=== PATIENT | female | born 1935 | race Caucasian/White ===

== ENCOUNTER 2017-11-12 07:51 | Inpatient (IN) | payer MEDICARE ==
[~2017-11-12] VITALS: Ht 160 cm; Wt 67.5 kg
[2017-11-12] VITALS (15 sets, daily range): BP systolic 113–146; BP diastolic 70–100
[2017-11-12] MEDS ORDERED: NITROGLYCERIN 0.4 MG SL TAB SL ONE (08:00)
[2017-11-12] MEDS ORDERED: NITROGLYCERIN 50 MG/D5% WATER 1 BOT ONE (08:01)
[2017-11-12] MEDS ORDERED: HEPARIN 25000 UNITS/250 ML D5W 250 ML IV ONE (08:16)
[2017-11-12 08:21] LABS: POTASSIUM 4.3 mmol/L (3.5-5.1)
[2017-11-12] MEDS ORDERED: BIVALIRUDIN 250 MG/VIAL IV ONE (08:25)
[2017-11-12] MEDS ORDERED: NITROGLYCERIN 5 MG/ML 10 ML VIAL IV ONE (08:25)
[2017-11-12] MEDS ORDERED: ISOVUE-370 50ML VIAL IV ONE (08:26)
[2017-11-12] MEDS ORDERED: LIDOCAINE HCL 2% 20ML ONE ×2 (08:26→09:59)
[2017-11-12] MEDS ORDERED: IOPAMIDOL-370 100 ML VIAL IV ONE ×2 (08:26→09:37)
[2017-11-12] MEDS ORDERED: HEPARIN SODIUM 5000UNIT/ML 1ML VIAL ONE (08:28)
[2017-11-12 08:29] LABS: BASOPHILS % (AUTO) 1.3 % (0.0-5.0); EOSINOPHILS % (AUTO) 2.6 % (0.0-8.0); HEMATOCRIT 45.9 % (36-48); LYMPHOCYTES % (AUTO) 33.6 % (21.0-51.0); MEAN CORPUSCULAR HEMOGLOBIN 32.2 pg (27.0-33.0); MEAN CORPUSCULAR HGB CONC 33.8 g/dL (32.0-36.0); MEAN CORPUSCULAR VOLUME 95.4 fL (79-99); MONOCYTES % (AUTO) 8.8 % (3.0-13.0); NEUTROPHILS % (AUTO) 53.7 % (40.0-77.0); PLATELET COUNT (AUTO) 238 K/uL (130-400); RED BLOOD CELL COUNT(AUTO) 4.81 MIL/uL (4.00-5.50); RED CELL DISTRIBUTION WIDTH 14.5 % (11.0-15.5); WHITE BLOOD COUNT (AUTO) 7.6 K/uL (4.8-10.8)
[2017-11-12 08:36] LABS: ALBUMIN 3.7 g/dL (3.5-5.0); BILIRUBIN,TOTAL 0.4 mg/dL (0.2-1.0); CREATINE KINASE MB 2.7 ng/mL (0.5-3.6); TOTAL PROTEIN, SERUM 8.4 g/dL (6.0-8.3)
[2017-11-12 08:50] LABS: INR 0.96 (0.85-1.15); PARTIAL THROMBOPLASTIN TIME 27.1 SEC (26.3-35.5); PROTHROMBIN TIME 10.1 SEC (9.6-11.6)
[2017-11-12] MEDS ORDERED: LABETALOL HCL 5 MG/ML 20ML VIAL IV ONE (09:00)
[2017-11-12] MEDS ORDERED: ATROPINE SULFATE 0.1 MG/ML 10 ML SYG IVP ONE (09:05)
[2017-11-12] MEDS ORDERED: HEPARIN SODIUM 1000UNIT/ML 10ML VIAL ONE (09:22)
[2017-11-12] MEDS ORDERED: MORPHINE SULFATE 4 MG/1ML SYG ONE (09:25)
[2017-11-12] MEDS ORDERED: ADENOSINE 3 MG/ML 2ML VIAL IV ONE (09:32)
[2017-11-12] MEDS ORDERED: LISINOPRIL 10 MG TABLET PO SCH (10:15)
[2017-11-12] MEDS ORDERED: SODIUM CHLORIDE 0.9% 1000ML 1,000 ML IV SCH (10:15)
[2017-11-12] MEDS ORDERED: TICAGRELOR 90 MG TABLET ONE (10:27)
[2017-11-12] MEDS ORDERED: ENALAPRIL MALEATE 5 MG TAB PO SCH (11:45)
[2017-11-12 11:56] LABS: HEMATOCRIT 39.5 % (36-48); MEAN CORPUSCULAR HEMOGLOBIN 32.6 pg (27.0-33.0); MEAN CORPUSCULAR HGB CONC 34.3 g/dL (32.0-36.0); MEAN CORPUSCULAR VOLUME 94.9 fL (79-99); PLATELET COUNT (AUTO) 211 K/uL (130-400); RED BLOOD CELL COUNT(AUTO) 4.16 MIL/uL (4.00-5.50); RED CELL DISTRIBUTION WIDTH 14.3 % (11.0-15.5); WHITE BLOOD COUNT (AUTO) 9.8 K/uL (4.8-10.8)
[2017-11-12] MEDS ORDERED: CALC500T7 PO (11:58)
[2017-11-12] MEDS ORDERED: IBUP1TAB71 PO (11:58)
[2017-11-12] MEDS: METOPROLOL TARTRATE 25 MG TAB PO SCH ×2 (12:21→20:36)
[2017-11-12] MEDS ORDERED: SODIUM CHLORIDE 0.9% 500ML 500 ML IV ONE (12:29)
[2017-11-12 12:44] LABS: ALBUMIN 3.1 g/dL (3.5-5.0); BILIRUBIN,TOTAL 0.5 mg/dL (0.2-1.0); CREATINE KINASE MB 32.6 ng/mL (0.5-3.6); MAGNESIUM 1.7 mg/dL (1.80-2.40); POTASSIUM 4.7 mmol/L (3.5-5.1); TOTAL PROTEIN, SERUM 6.8 g/dL (6.0-8.3)
[2017-11-12 12:50] LABS: TROPONIN I 16.04 ng/mL (0.00-0.06)
[2017-11-12] MEDS: HEPARIN SODIUM 5000 UNIT/ML 25,000 UNIT in DEXTROSE 5%-WATER 500 ML SQ NR (12:55)
[2017-11-12 18:02] LABS: CREATINE KINASE MB 51.3 ng/mL (0.5-3.6)
[2017-11-12 18:04] LABS: TROPONIN I 23.76 ng/mL (0.00-0.06)
[2017-11-12] MEDS: ONDANSETRON HCL 4 MG/2 ML VIAL IVP PRN (18:33)
[2017-11-12] MEDS: TICAGRELOR 90 MG TABLET PO SCH (20:35)
[2017-11-12] MEDS: DIAZEPAM 5 MG TABLET PO PRN (20:36)
[2017-11-12] MEDS: FUROSEMIDE 20 MG TABLET PO SCH (23:36)
[2017-11-13] VITALS (31 sets, daily range): BP systolic 100–150; BP diastolic 57–104
[2017-11-13] MEDS: NITROGLYCERIN 50 MG/D5% WATER 1 BOT IV PRN ×2 (01:57→19:55)
[2017-11-13 03:47] LABS: HEMATOCRIT 36.1 % (36-48); MEAN CORPUSCULAR HEMOGLOBIN 32.8 pg (27.0-33.0); MEAN CORPUSCULAR HGB CONC 34.6 g/dL (32.0-36.0); MEAN CORPUSCULAR VOLUME 94.8 fL (79-99); PLATELET COUNT (AUTO) 188 K/uL (130-400); RED BLOOD CELL COUNT(AUTO) 3.81 MIL/uL (4.00-5.50); RED CELL DISTRIBUTION WIDTH 14.8 % (11.0-15.5); WHITE BLOOD COUNT (AUTO) 8.7 K/uL (4.8-10.8)
[2017-11-13 04:38] LABS: CREATINE KINASE MB 55.3 ng/mL (0.5-3.6); POTASSIUM 4.9 mmol/L (3.5-5.1)
[2017-11-13 04:43] LABS: TROPONIN I 17.97 ng/mL (0.00-0.06)
[2017-11-13] MEDS: METOPROLOL TARTRATE 25 MG TAB PO SCH ×2 (08:11→19:54)
[2017-11-13] MEDS: ASPIRIN 81MG TAB.CHEW PO SCH (08:11)
[2017-11-13] MEDS: PANTOPRAZOLE SODIUM 40 MG TABLET.DR PO SCH (08:13)
[2017-11-13] MEDS: ENALAPRIL MALEATE 5 MG TAB PO SCH (08:13)
[2017-11-13] MEDS: ONDANSETRON HCL 4 MG/2 ML VIAL IVP PRN (08:13)
[2017-11-13] MEDS: MORPHINE SULFATE 2 MG/ML 1ML SYG IV PRN (08:14)
[2017-11-13] MEDS: TICAGRELOR 90 MG TABLET PO SCH ×2 (08:47→19:54)
[2017-11-13] MEDS: DIAZEPAM 5 MG TABLET PO PRN (08:47)
[2017-11-13] MEDS: FUROSEMIDE 20 MG TABLET PO SCH (23:15)
[2017-11-14] VITALS (37 sets, daily range): BP systolic 87–151; BP diastolic 37–117
[2017-11-14] MEDS: HEPARIN SODIUM 5000 UNIT/ML 25,000 UNIT in DEXTROSE 5%-WATER 500 ML SQ NR (05:47)
[2017-11-14] MEDS ORDERED: SODIUM CHLORIDE 0.9% 1000ML 1,000 ML IV ONE ×2 (06:13→20:42)
[2017-11-14 06:49] LABS: CREATININE 0.9 mg/dL (0.5-1.5); POTASSIUM 3.6 mmol/L (3.5-5.1)
[2017-11-14] MEDS ORDERED: FUROSEMIDE 10 MG/ML 2ML VIAL IV SCH (08:00)
[2017-11-14] MEDS: TICAGRELOR 90 MG TABLET PO SCH ×2 (08:35→20:12)
[2017-11-14] MEDS: METOPROLOL TARTRATE 25 MG TAB PO SCH ×2 (08:35→20:12)
[2017-11-14] MEDS: ASPIRIN 81MG TAB.CHEW PO SCH (08:35)
[2017-11-14] MEDS: PANTOPRAZOLE SODIUM 40 MG TABLET.DR PO SCH (08:35)
[2017-11-14] MEDS: ENALAPRIL MALEATE 5 MG TAB PO SCH (08:36)
[2017-11-14 11:52] LABS: INR 0.96 (0.85-1.15); PARTIAL THROMBOPLASTIN TIME 57.4 SEC (26.3-35.5); PROTHROMBIN TIME 10.1 SEC (9.6-11.6)
[2017-11-14] MEDS ORDERED: HEPARIN SODIUM 1000UNIT/ML 10ML VIAL ONE (13:32)
[2017-11-14] MEDS ORDERED: NITROGLYCERIN 5 MG/ML 10 ML VIAL IV ONE (13:32)
[2017-11-14] MEDS ORDERED: IOPAMIDOL-370 100 ML VIAL IV ONE (13:32)
[2017-11-14] MEDS ORDERED: LIDOCAINE HCL 2% 20ML ONE (13:32)
[2017-11-14] MEDS ORDERED: BIVALIRUDIN 250 MG/VIAL IV ONE (14:06)
[2017-11-14] MEDS ORDERED: MORPHINE SULFATE 4 MG/1ML SYG ONE (14:48)
[2017-11-14] MEDS ORDERED: ONDANSETRON HCL MDV 20ML 2 MG/ML VIAL IVP PRN ×2 (15:15)
[2017-11-14] MEDS ORDERED: MORPHINE SULFATE 4 MG/1ML SYG IVP PRN (16:00)
[2017-11-14] MEDS: LISINOPRIL 10 MG TABLET PO SCH ×2 (16:19→20:13)
[2017-11-14] MEDS ORDERED: HEPARIN 25000 UNITS/250 ML D5W 250 ML IV ONE (20:02)
[2017-11-14] MEDS: ATORVASTATIN CALCIUM 20 MG TABLET PO SCH (20:12)
[2017-11-14] MEDS: FUROSEMIDE 20 MG TABLET PO SCH (20:13)
[2017-11-14] MEDS ORDERED: HEPARIN SODIUM 5000UNIT/ML 1ML VIAL ONE (20:50)
[2017-11-14] MEDS ORDERED: HEPARIN 25000 UNITS/250 ML D5W 250 ML IV SCH (21:45)
[2017-11-15] VITALS (46 sets, daily range): BP systolic 88–153; BP diastolic 46–73
[2017-11-15] MEDS: MORPHINE SULFATE 2 MG/ML 1ML SYG IV PRN ×2 (06:10→11:28)
[2017-11-15 06:16] LABS: MEAN CORPUSCULAR HEMOGLOBIN 33.8 pg (27.0-33.0); MEAN CORPUSCULAR HGB CONC 35.5 g/dL (32.0-36.0); MEAN CORPUSCULAR VOLUME 95.1 fL (79-99); PLATELET COUNT (AUTO) 107 K/uL (130-400); RED BLOOD CELL COUNT(AUTO) 2.73 MIL/uL (4.00-5.50); RED CELL DISTRIBUTION WIDTH 14.4 % (11.0-15.5); WHITE BLOOD COUNT (AUTO) 7.5 K/uL (4.8-10.8)
[2017-11-15 06:26] LABS: CREATININE 0.9 mg/dL (0.5-1.5); POTASSIUM 3.6 mmol/L (3.5-5.1)
[2017-11-15] MEDS ORDERED: HEPARIN SODIUM 5000UNIT/ML 1ML VIAL ONE (08:07)
[2017-11-15] MEDS ORDERED: POTASSIUM CHLORIDE 10% ELIXIR 20 MEQ/15 ML UDCUP ONE (08:11)
[2017-11-15] MEDS: ASPIRIN 81MG TAB.CHEW PO SCH (08:50)
[2017-11-15] MEDS: TICAGRELOR 90 MG TABLET PO SCH ×2 (08:50→20:03)
[2017-11-15] MEDS: PANTOPRAZOLE SODIUM 40 MG TABLET.DR PO SCH (08:50)
[2017-11-15] MEDS: METOPROLOL TARTRATE 25 MG TAB PO SCH ×2 (08:50→20:03)
[2017-11-15] MEDS ORDERED: SODIUM CHLORIDE 0.9% 1000ML 1,000 ML IV ONE (09:25)
[2017-11-15] MEDS: DEXTROSE 5%-WATER 500 ML IV SCH (10:00)
[2017-11-15] MEDS ORDERED: DEXTROSE 5%-WATER 1,000 ML IV ONE (10:05)
[2017-11-15] MEDS ORDERED: MIDAZOLAM HCL 1 MG/ML 2ML VIAL ONE (10:37)
[2017-11-15] MEDS ORDERED: LIDOCAINE HCL 1% 20 ML VIAL ONE (10:45)
[2017-11-15] MEDS: FUROSEMIDE 20 MG TABLET PO SCH (19:40)
[2017-11-15] MEDS: ATORVASTATIN CALCIUM 20 MG TABLET PO SCH (20:03)
[2017-11-16] VITALS (23 sets, daily range): BP systolic 103–171; BP diastolic 45–72
[2017-11-16 05:34] LABS: CREATININE 0.9 mg/dL (0.5-1.5); POTASSIUM 3.9 mmol/L (3.5-5.1)
[2017-11-16] MEDS: ASPIRIN 81MG TAB.CHEW PO SCH (09:14)
[2017-11-16] MEDS: METOPROLOL TARTRATE 50 MG TAB PO SCH ×2 (09:14→20:59)
[2017-11-16] MEDS: PANTOPRAZOLE SODIUM 40 MG TABLET.DR PO SCH (09:14)
[2017-11-16] MEDS: TICAGRELOR 90 MG TABLET PO SCH ×2 (09:14→20:59)
[2017-11-16] MEDS: DEXTROSE 5%-WATER 500 ML IV SCH (10:00)
[2017-11-16] MEDS: ATORVASTATIN CALCIUM 20 MG TABLET PO SCH (20:59)
[2017-11-17] VITALS (13 sets, daily range): BP systolic 105–153; BP diastolic 44–74
[2017-11-17 04:04] LABS: CREATININE 0.9 mg/dL (0.5-1.5); POTASSIUM 3.6 mmol/L (3.5-5.1)
[2017-11-17] MEDS: TICAGRELOR 90 MG TABLET PO SCH ×2 (09:07→20:26)
[2017-11-17] MEDS: PANTOPRAZOLE SODIUM 40 MG TABLET.DR PO SCH (09:07)
[2017-11-17] MEDS: ASPIRIN 81MG TAB.CHEW PO SCH (09:08)
[2017-11-17] MEDS: SPIRONOLACTONE 25 MG TAB PO SCH (09:08)
[2017-11-17] MEDS: FUROSEMIDE 20 MG TABLET PO SCH (09:08)
[2017-11-17] MEDS: METOPROLOL TARTRATE 50 MG TAB PO SCH ×2 (09:08→20:26)
[2017-11-17] MEDS: MORPHINE SULFATE 2 MG/ML 1ML SYG IV PRN (13:17)
[2017-11-17] MEDS: ATORVASTATIN CALCIUM 20 MG TABLET PO SCH (20:26)
[2017-11-17] MEDS: TRAMADOL HCL 50 MG TABLET PO PRN (21:26)
[2017-11-18 03:50] VITALS: BP 124/65
[2017-11-18 04:10] LABS: CREATININE 1.1 mg/dL (0.5-1.5); POTASSIUM 3.4 mmol/L (3.5-5.1)
[2017-11-18 07:51] VITALS: BP 130/65
[2017-11-18] MEDS: FUROSEMIDE 20 MG TABLET PO SCH (10:13)
[2017-11-18] MEDS: METOPROLOL TARTRATE 50 MG TAB PO SCH ×2 (10:13→21:18)
[2017-11-18] MEDS: SPIRONOLACTONE 25 MG TAB PO SCH (10:13)
[2017-11-18] MEDS: TICAGRELOR 90 MG TABLET PO SCH ×2 (10:13→21:18)
[2017-11-18] MEDS: ASPIRIN 81MG TAB.CHEW PO SCH (10:13)
[2017-11-18] MEDS: PANTOPRAZOLE SODIUM 40 MG TABLET.DR PO SCH (10:13)
[2017-11-18 11:55] VITALS: BP 139/66
[2017-11-18] MEDS ORDERED: FUROSEMIDE 10 MG/ML 4ML VIAL IV SCH (12:00)
[2017-11-18 12:49] LABS: HEMATOCRIT 23.2 % (36-48); MEAN CORPUSCULAR HEMOGLOBIN 33.5 pg (27.0-33.0); MEAN CORPUSCULAR HGB CONC 34.9 g/dL (32.0-36.0); NUCLEATED RED BLOOD CELLS 0.1 % (0.0-0.19); PLATELET COUNT (AUTO) 217 K/uL (130-400); RED BLOOD CELL COUNT(AUTO) 2.41 MIL/uL (4.00-5.50); RED CELL DISTRIBUTION WIDTH 14.3 % (11.0-15.5); WHITE BLOOD COUNT (AUTO) 10.8 K/uL (4.8-10.8)
[2017-11-18 13:52] LABS: BASOPHILS % (MANUAL) 1 % (0-2); LYMPHOCYTES % (MANUAL) 6 % (22-44); MAN.DIFF COMMENT-IMPRESSION MANUAL DIFFERENTIAL; MONOCYTES % (MANUAL) 16 % (2-9); PLATELET MORPHOLOGY COMMENT ADEQUATE; SEGMENTED NEUTROPHILS % 77 % (40-70)
[2017-11-18] MEDS: POTASSIUM CHLORIDE 20 MEQ ERTAB PO SCH ×3 (14:49→20:00)
[2017-11-18 16:00] VITALS: BP 119/59
[2017-11-18] MEDS: ONDANSETRON HCL 4 MG/2 ML VIAL IVP PRN (19:02)
[2017-11-18 19:36] VITALS: BP 116/52
[2017-11-18] MEDS ORDERED: POTASSIUM CHLORIDE 10 MEQ/TAB.SA PO ONE ×4 (21:05→21:06)
[2017-11-18] MEDS: ATORVASTATIN CALCIUM 20 MG TABLET PO SCH (21:18)
[2017-11-18 23:57] VITALS: BP 104/64
[2017-11-19] VITALS (8 sets, daily range): BP systolic 94–132; BP diastolic 50–68
[2017-11-19] MEDS: TRAMADOL HCL 50 MG TABLET PO PRN ×2 (01:07→10:26)
[2017-11-19 04:01] LABS: BASOPHILS % (AUTO) 0.3 % (0.0-5.0); EOSINOPHILS % (AUTO) 0.1 % (0.0-8.0); HEMATOCRIT 22.2 % (36-48); LYMPHOCYTES % (AUTO) 6.8 % (21.0-51.0); MEAN CORPUSCULAR HEMOGLOBIN 33.1 pg (27.0-33.0); MEAN CORPUSCULAR HGB CONC 34.8 g/dL (32.0-36.0); MEAN CORPUSCULAR VOLUME 95.2 fL (79-99); MONOCYTES % (AUTO) 11.3 % (3.0-13.0); NEUTROPHILS % (AUTO) 81.5 % (40.0-77.0); PLATELET COUNT (AUTO) 243 K/uL (130-400); RED BLOOD CELL COUNT(AUTO) 2.33 MIL/uL (4.00-5.50); RED CELL DISTRIBUTION WIDTH 14.7 % (11.0-15.5); WHITE BLOOD COUNT (AUTO) 9.8 K/uL (4.8-10.8)
[2017-11-19 04:09] LABS: CREATININE 1.2 mg/dL (0.5-1.5); MAGNESIUM 1.6 mg/dL (1.80-2.40); POTASSIUM 4.9 mmol/L (3.5-5.1)
[2017-11-19 04:18] LABS: B-TYPE NATRIURETIC PEPTIDE 3090 pg/mL (0-100)
[2017-11-19] MEDS ORDERED: IOPAMIDOL-370 100 ML VIAL IV ONE (08:13)
[2017-11-19] MEDS: ONDANSETRON HCL 4 MG/2 ML VIAL IVP PRN (10:27)
[2017-11-19] MEDS: METOPROLOL TARTRATE 50 MG TAB PO SCH ×2 (11:13→22:43)
[2017-11-19] MEDS: ASPIRIN 81MG TAB.CHEW PO SCH (11:13)
[2017-11-19] MEDS: SPIRONOLACTONE 25 MG TAB PO SCH (11:14)
[2017-11-19] MEDS: TICAGRELOR 90 MG TABLET PO SCH ×2 (11:14→22:43)
[2017-11-19] MEDS: PANTOPRAZOLE SODIUM 40 MG TABLET.DR PO SCH ×2 (11:14→22:44)
[2017-11-19] MEDS: FUROSEMIDE 20 MG TABLET PO SCH (11:14)
[2017-11-19] MEDS ORDERED: FUROSEMIDE 10 MG/ML 4ML VIAL IV SCH (11:30)
[2017-11-19 15:06] LABS: HEMATOCRIT 30.3 % (36-48)
[2017-11-19] MEDS: SUCRALFATE 1 GM/10 ML PO SCH ×2 (16:30→22:44)
[2017-11-19] MEDS ORDERED: MAGNESIUM CITRATE 296 ML SOLUTION PO SCH (17:30)
[2017-11-19] MEDS ORDERED: LACTULOSE 20 GM/30 ML UDCUP PO SCH (17:30)
[2017-11-19] MEDS ORDERED: PEG 3350/NA SULF,BICARB,CL/KCL 4000 ML SOLN PO SCH (18:00)
[2017-11-19] MEDS ORDERED: MAGNESIUM 4GM PREMIX 100ML 100 ML IV ONE (20:30)
[2017-11-19] MEDS: ATORVASTATIN CALCIUM 20 MG TABLET PO SCH (22:43)
[2017-11-20 03:53] VITALS: BP 119/59
[2017-11-20 04:35] LABS: BASOPHILS % (AUTO) 0.4 % (0.0-5.0); EOSINOPHILS % (AUTO) 0.1 % (0.0-8.0); LYMPHOCYTES % (AUTO) 7.5 % (21.0-51.0); MEAN CORPUSCULAR HEMOGLOBIN 32.5 pg (27.0-33.0); MEAN CORPUSCULAR HGB CONC 34.9 g/dL (32.0-36.0); MONOCYTES % (AUTO) 8.7 % (3.0-13.0); NEUTROPHILS % (AUTO) 83.3 % (40.0-77.0); NUCLEATED RED BLOOD CELLS 1.4 % (0.0-0.19); PLATELET COUNT (AUTO) 307 K/uL (130-400); RED BLOOD CELL COUNT(AUTO) 2.91 MIL/uL (4.00-5.50); RED CELL DISTRIBUTION WIDTH 16.8 % (11.0-15.5); WHITE BLOOD COUNT (AUTO) 11.9 K/uL (4.8-10.8)
[2017-11-20 04:40] LABS: CREATININE 1.2 mg/dL (0.5-1.5); MAGNESIUM 3.4 mg/dL (1.80-2.40); POTASSIUM 3.6 mmol/L (3.5-5.1)
[2017-11-20 05:21] LABS: B-TYPE NATRIURETIC PEPTIDE 4330 pg/mL (0-100)
[2017-11-20 07:15] VITALS: BP 120/54
[2017-11-20] MEDS: SUCRALFATE 1 GM/10 ML PO SCH ×4 (07:30→22:57)
[2017-11-20] MEDS ORDERED: COMPOUND IV MISC 1 EACH IVSOLN MISC PRN (12:30)
[2017-11-20 12:42] VITALS: BP 139/69
[2017-11-20] MEDS ORDERED: FUROSEMIDE 10 MG/ML 4ML VIAL IV SCH (13:00)
[2017-11-20] MEDS ORDERED: FOLIC ACID 1 MG TABLET ONE (13:00)
[2017-11-20] MEDS ORDERED: CYANOCOBALAMIN (VITAMIN B-12) 1,000 MCG TABLET ONE (13:00)
[2017-11-20] MEDS: FUROSEMIDE 20 MG TABLET PO SCH (13:11)
[2017-11-20] MEDS: TICAGRELOR 90 MG TABLET PO SCH ×2 (13:11→22:58)
[2017-11-20] MEDS: METOPROLOL TARTRATE 50 MG TAB PO SCH ×2 (13:11→20:33)
[2017-11-20] MEDS: PANTOPRAZOLE SODIUM 40 MG TABLET.DR PO SCH ×2 (13:11→22:58)
[2017-11-20] MEDS: SPIRONOLACTONE 25 MG TAB PO SCH (13:11)
[2017-11-20] MEDS: ASPIRIN 81MG TAB.CHEW PO SCH (13:15)
[2017-11-20] MEDS: IRON SUCROSE COMPLEX 100 MG in SODIUM CHLORIDE 0.9% 50 ML IV SCH (15:51)
[2017-11-20 16:43] VITALS: BP 119/60
[2017-11-20] MEDS ORDERED: LIDOCAINE HCL-MPF 1% 2ML VIAL IVP PRN (19:30)
[2017-11-20] MEDS ORDERED: POTASSIUM CHLORIDE 20MEQ/100ML 100 ML IV PRN (19:30)
[2017-11-20 20:03] VITALS: BP 132/64
[2017-11-20] MEDS ORDERED: POTASSIUM CHLORIDE 10 MEQ/TAB.SA PO ONE ×4 (20:39→23:01)
[2017-11-20] MEDS: ATORVASTATIN CALCIUM 20 MG TABLET PO SCH (20:44)
[2017-11-21] VITALS: BP 126/68
[2017-11-21 05:04] LABS: HEMATOCRIT 28.4 % (36-48); MEAN CORPUSCULAR HEMOGLOBIN 32.6 pg (27.0-33.0); MEAN CORPUSCULAR HGB CONC 35.1 g/dL (32.0-36.0); MEAN CORPUSCULAR VOLUME 92.9 fL (79-99); NUCLEATED RED BLOOD CELLS 1.1 % (0.0-0.19); PLATELET COUNT (AUTO) 353 K/uL (130-400); RED BLOOD CELL COUNT(AUTO) 3.05 MIL/uL (4.00-5.50); RED CELL DISTRIBUTION WIDTH 16.6 % (11.0-15.5); WHITE BLOOD COUNT (AUTO) 10.4 K/uL (4.8-10.8)
[2017-11-21 05:06] VITALS: BP 123/68
[2017-11-21 05:19] LABS: CREATININE 1.1 mg/dL (0.5-1.5); MAGNESIUM 2.3 mg/dL (1.80-2.40); POTASSIUM 4.1 mmol/L (3.5-5.1)
[2017-11-21 06:20] LABS: B-TYPE NATRIURETIC PEPTIDE 3000 pg/mL (0-100)
[2017-11-21] MEDS: SUCRALFATE 1 GM/10 ML PO SCH ×4 (08:10→21:16)
[2017-11-21 08:13] VITALS: BP 130/60
[2017-11-21] MEDS ORDERED: EPOETIN ALFA 20,000 UNIT/ML VIAL SQ SCH (09:00)
[2017-11-21] MEDS: SPIRONOLACTONE 25 MG TAB PO SCH (09:44)
[2017-11-21] MEDS: TICAGRELOR 90 MG TABLET PO SCH ×2 (09:44→21:17)
[2017-11-21] MEDS: FOLIC ACID 1 MG TABLET PO SCH (09:44)
[2017-11-21] MEDS: CYANOCOBALAMIN (VITAMIN B-12) 1,000 MCG TABLET PO SCH (09:44)
[2017-11-21] MEDS: METOPROLOL TARTRATE 50 MG TAB PO SCH ×2 (09:45→21:17)
[2017-11-21] MEDS: FUROSEMIDE 20 MG TABLET PO SCH (09:45)
[2017-11-21] MEDS: PANTOPRAZOLE SODIUM 40 MG TABLET.DR PO SCH ×2 (09:45→21:17)
[2017-11-21] MEDS: ASPIRIN 81MG TAB.CHEW PO SCH (09:45)
[2017-11-21] MEDS: IRON SUCROSE COMPLEX 100 MG in SODIUM CHLORIDE 0.9% 50 ML IV SCH (10:16)
[2017-11-21] MEDS ORDERED: FUROSEMIDE 10 MG/ML 4ML VIAL IV SCH ×2 (10:30→17:00)
[2017-11-21] MEDS: POTASSIUM CHLORIDE 10% ELIXIR 20 MEQ/15 ML UDCUP PO PRN ×2 (11:10→17:06)
[2017-11-21 11:35] VITALS: BP 120/59
[2017-11-21 16:39] VITALS: BP 135/44
[2017-11-21] MEDS ORDERED: FUROSEMIDE 10 MG/ML 4ML VIAL ONE (17:02)
[2017-11-21 19:59] LABS: APPEARANCE,URINE Clear (CLEAR); BILIRUBIN,URINE Negative (NEGATIVE); COLOR,URINE Yellow (YELLOW); GLUCOSE, URINE (UA) Negative (NEGATIVE); KETONES,URINE Negative (NEGATIVE); LEUKOCYTE ESTERASE ,URINE Trace (NEGATIVE); NITRATE,URINE Negative (NEGATIVE); OCCULT BLOOD,URINE Negative (NEGATIVE); PH,URINE 6.5 (5.0-8.0); PROTEIN,URINE Negative (NEGATIVE); UROBILINOGEN,URINE 0.2 mg/dL (0.2-1.0)
[2017-11-21 20:07] LABS: BACTERIA,URINE Few /HPF (None Seen); RBC,URINE None Seen /HPF (0-1); SQUAMOUS EPITHELIAL CELL,UR 0-2 /HPF (0-2)
[2017-11-21] MEDS: ATORVASTATIN CALCIUM 20 MG TABLET PO SCH (21:17)
[2017-11-22] VITALS (7 sets, daily range): BP systolic 114–139; BP diastolic 52–65
[2017-11-22 05:09] LABS: HEMATOCRIT 28.7 % (36-48)
[2017-11-22 05:17] LABS: CREATININE 1.1 mg/dL (0.5-1.5); POTASSIUM 3.5 mmol/L (3.5-5.1)
[2017-11-22] MEDS ORDERED: FUROSEMIDE 10 MG/ML 4ML VIAL IV SCH ×2 (09:30→17:00)
[2017-11-22] MEDS ORDERED: POTASSIUM CHLORIDE 20 MEQ ERTAB PO SCH (09:30)
[2017-11-22] MEDS: ASPIRIN 81MG TAB.CHEW PO SCH (10:07)
[2017-11-22] MEDS: SPIRONOLACTONE 25 MG TAB PO SCH (10:07)
[2017-11-22] MEDS: FOLIC ACID 1 MG TABLET PO SCH (10:07)
[2017-11-22] MEDS: SUCRALFATE 1 GM/10 ML PO SCH ×4 (10:07→20:19)
[2017-11-22] MEDS: METOPROLOL TARTRATE 50 MG TAB PO SCH ×2 (10:07→20:20)
[2017-11-22] MEDS: PANTOPRAZOLE SODIUM 40 MG TABLET.DR PO SCH ×2 (10:08→20:20)
[2017-11-22] MEDS: TICAGRELOR 90 MG TABLET PO SCH ×2 (10:08→20:20)
[2017-11-22] MEDS: CYANOCOBALAMIN (VITAMIN B-12) 1,000 MCG TABLET PO SCH (10:08)
[2017-11-22] MEDS: IRON SUCROSE COMPLEX 100 MG in SODIUM CHLORIDE 0.9% 50 ML IV SCH (10:33)
[2017-11-22] MEDS: POTASSIUM CHLORIDE 10% ELIXIR 20 MEQ/15 ML UDCUP PO SCH ×2 (10:44→20:21)
[2017-11-22] MEDS: FUROSEMIDE 10 MG/ML 4ML VIAL IV SCH (15:52)
[2017-11-22] MEDS: ATORVASTATIN CALCIUM 20 MG TABLET PO SCH (20:20)
[2017-11-23 03:36] VITALS: BP 113/60
[2017-11-23 04:22] LABS: CREATININE 1.2 mg/dL (0.5-1.5); POTASSIUM 4.4 mmol/L (3.5-5.1)
[2017-11-23] MEDS: FUROSEMIDE 10 MG/ML 4ML VIAL IV SCH ×3 (05:31→16:00)
[2017-11-23 08:03] VITALS: BP 113/47
[2017-11-23] MEDS: SUCRALFATE 1 GM/10 ML PO SCH ×4 (09:03→21:50)
[2017-11-23] MEDS: FOLIC ACID 1 MG TABLET PO SCH (09:03)
[2017-11-23] MEDS: SPIRONOLACTONE 25 MG TAB PO SCH (09:03)
[2017-11-23] MEDS: POTASSIUM CHLORIDE 10% ELIXIR 20 MEQ/15 ML UDCUP PO SCH ×3 (09:03→21:00)
[2017-11-23] MEDS: ASPIRIN 81MG TAB.CHEW PO SCH (09:04)
[2017-11-23] MEDS: TICAGRELOR 90 MG TABLET PO SCH ×2 (09:04→21:50)
[2017-11-23] MEDS: METOPROLOL TARTRATE 50 MG TAB PO SCH ×2 (09:04→21:50)
[2017-11-23] MEDS: PANTOPRAZOLE SODIUM 40 MG TABLET.DR PO SCH ×2 (09:04→21:50)
[2017-11-23] MEDS: CYANOCOBALAMIN (VITAMIN B-12) 1,000 MCG TABLET PO SCH (09:04)
[2017-11-23] MEDS: IRON SUCROSE COMPLEX 100 MG in SODIUM CHLORIDE 0.9% 50 ML IV SCH (09:12)
[2017-11-23 12:10] VITALS: BP 126/58
[2017-11-23 16:00] VITALS: BP 110/50
[2017-11-23 19:48] VITALS: BP 129/61
[2017-11-23] MEDS: ATORVASTATIN CALCIUM 20 MG TABLET PO SCH (21:50)
[2017-11-24] VITALS (7 sets, daily range): BP systolic 107–130; BP diastolic 51–65
[2017-11-24 04:30] LABS: CREATININE 1.2 mg/dL (0.5-1.5); POTASSIUM 4.3 mmol/L (3.5-5.1)
[2017-11-24] MEDS: FUROSEMIDE 10 MG/ML 4ML VIAL IV SCH ×3 (06:11→16:00)
[2017-11-24] MEDS: SUCRALFATE 1 GM/10 ML PO SCH ×4 (06:11→20:44)
[2017-11-24] MEDS: IRON SUCROSE COMPLEX 100 MG in SODIUM CHLORIDE 0.9% 50 ML IV SCH (08:46)
[2017-11-24] MEDS: POTASSIUM CHLORIDE 20 MEQ ERTAB PO PRN ×2 (08:47→08:48)
[2017-11-24] MEDS: CYANOCOBALAMIN (VITAMIN B-12) 1,000 MCG TABLET PO SCH (08:47)
[2017-11-24] MEDS: SPIRONOLACTONE 25 MG TAB PO SCH (08:47)
[2017-11-24] MEDS: PANTOPRAZOLE SODIUM 40 MG TABLET.DR PO SCH ×2 (08:47→20:45)
[2017-11-24] MEDS: METOPROLOL TARTRATE 50 MG TAB PO SCH ×2 (08:47→20:46)
[2017-11-24] MEDS: FOLIC ACID 1 MG TABLET PO SCH (08:47)
[2017-11-24] MEDS: ASPIRIN 81MG TAB.CHEW PO SCH (08:47)
[2017-11-24] MEDS: TICAGRELOR 90 MG TABLET PO SCH ×2 (08:47→23:26)
[2017-11-24] MEDS: POTASSIUM CHLORIDE 10% ELIXIR 20 MEQ/15 ML UDCUP PO SCH ×3 (08:48→20:46)
[2017-11-24] MEDS: ATORVASTATIN CALCIUM 20 MG TABLET PO SCH (20:46)
[2017-11-25 03:44] VITALS: BP 135/57
[2017-11-25 05:11] LABS: CREATININE 1.1 mg/dL (0.5-1.5); POTASSIUM 4.1 mmol/L (3.5-5.1)
[2017-11-25] MEDS: SUCRALFATE 1 GM/10 ML PO SCH ×3 (05:30→17:01)
[2017-11-25] MEDS: FUROSEMIDE 10 MG/ML 4ML VIAL IV SCH ×2 (05:31→11:03)
[2017-11-25 07:00] VITALS: BP 110/58
[2017-11-25] MEDS: PANTOPRAZOLE SODIUM 40 MG TABLET.DR PO SCH (09:00)
[2017-11-25] MEDS: SPIRONOLACTONE 25 MG TAB PO SCH (09:00)
[2017-11-25] MEDS: FOLIC ACID 1 MG TABLET PO SCH (09:00)
[2017-11-25] MEDS: ASPIRIN 81MG TAB.CHEW PO SCH (09:01)
[2017-11-25] MEDS: METOPROLOL TARTRATE 50 MG TAB PO SCH (09:01)
[2017-11-25] MEDS: CYANOCOBALAMIN (VITAMIN B-12) 1,000 MCG TABLET PO SCH (09:02)
[2017-11-25] MEDS: POTASSIUM CHLORIDE 10% ELIXIR 20 MEQ/15 ML UDCUP PO SCH ×2 (09:05→10:45)
[2017-11-25] MEDS: IRON SUCROSE COMPLEX 100 MG in SODIUM CHLORIDE 0.9% 50 ML IV SCH (09:07)
[2017-11-25 11:00] VITALS: BP 128/55
[2017-11-25] MEDS: TICAGRELOR 90 MG TABLET PO SCH (11:00)
[2017-11-25] MEDS ORDERED: FURO20TA4 PO (11:02)
[2017-11-25] MEDS ORDERED: METO50 PO (11:02)
[2017-11-25] MEDS ORDERED: TICA90TA PO (11:02)
[2017-11-25] MEDS ORDERED: SPIR25TA PO (11:02)
[2017-11-25] MEDS ORDERED: ATOR20TA65 PO (11:02)
[2017-11-25] MEDS ORDERED: ASPI-1005 PO (11:02)
[2017-11-25 16:00] VITALS: BP 121/58
== END 2017-11-25 18:05 | disposition home or self-care (01) | DRG 215 ==
LOC: EDH 07:51 → 2CH 10:15 → 2AH 11-17 13:01
PROVIDERS: ADMIT Family Medicine; ATTEND Family Medicine
PROC: 4A023N7 Measurement of Cardiac Sampling and Pressure, Left Heart, Percutaneous Approach (ICD-10-PCS; principal; 2017-11-12)
PROC: 02HA3RJ Insertion of Short-term External Heart Assist System into Heart, Intraoperative, Percutaneous Approach (ICD-10-PCS; 2017-11-12)
PROC: 5A0221D Assistance with Cardiac Output using Impeller Pump, Continuous (ICD-10-PCS; 2017-11-12)
PROC: B2151ZZ Fluoroscopy of Left Heart using Low Osmolar Contrast (ICD-10-PCS; 2017-11-12)
PROC: B2111ZZ Fluoroscopy of Multiple Coronary Arteries using Low Osmolar Contrast (ICD-10-PCS; 2017-11-12)
PROC: 027237Z Dilation of Coronary Artery, Three Arteries with Four or More Drug-eluting Intraluminal Devices, Percutaneous Approach (ICD-10-PCS; 2017-11-14)
PROC: 30233N1 Transfusion of Nonautologous Red Blood Cells into Peripheral Vein, Percutaneous Approach (ICD-10-PCS; 2017-11-14)
PROC: 02PA3RZ Removal of Short-term External Heart Assist System from Heart, Percutaneous Approach (ICD-10-PCS; 2017-11-15)
DX: I21.19 ST elevation (STEMI) myocardial infarction involving other coronary artery of inferior wall (principal); I50.43 Acute on chronic combined systolic (congestive) and diastolic (congestive) heart failure; R57.0 Cardiogenic shock; I13.0 Hypertensive heart and chronic kidney disease with heart failure and stage 1 through stage 4 chronic kidney disease, or unspecified chronic kidney disease; I42.9 Cardiomyopathy, unspecified; E78.5 Hyperlipidemia, unspecified; D46.9 Myelodysplastic syndrome, unspecified; D53.9 Nutritional anemia, unspecified; D72.0 Genetic anomalies of leukocytes; E83.42 Hypomagnesemia; I25.110 Atherosclerotic heart disease of native coronary artery with unstable angina pectoris; I34.0 Nonrheumatic mitral (valve) insufficiency; J44.9 Chronic obstructive pulmonary disease, unspecified; K21.9 Gastro-esophageal reflux disease without esophagitis; M19.90 Unspecified osteoarthritis, unspecified site; N18.9 Chronic kidney disease, unspecified; I25.2 Old myocardial infarction; Z95.5 Presence of coronary angioplasty implant and graft; Z90.49 Acquired absence of other specified parts of digestive tract; Z87.891 Personal history of nicotine dependence; Z87.11 Personal history of peptic ulcer disease; Z83.3 Family history of diabetes mellitus; Z82.3 Family history of stroke; Z80.3 Family history of malignant neoplasm of breast; Z80.2 Family history of malignant neoplasm of other respiratory and intrathoracic organs; Z80.0 Family history of malignant neoplasm of digestive organs
CPT/HCPCS: 33990; 36415; 71045; 71046; 74174; 74176; 80048; 80053; 80061; 81001; 82550; 82553; 82948; 83735; 83874; 83880; 84132; 84484; 85014; 85018; 85025; 85027; 85347; 85610; 85730; 86850; 86900; 86901; 86922; 93005; 93306; 93308; 93458; 93970; 97039; 99291; A4344; C1725; C1760; C1769; C1887; C1894; C9600; C9606; J0153; J0461; J0583; J0885; J1644; J1756; J1940; J2250; J2270; J2405; J3475; J3490; J7030; J7040; J7060; J7070; P9016; Q9967

== ENCOUNTER 2021-05-10 20:20 | Inpatient (IN) | payer MEDICARE ==
[~2021-05-10] VITALS: Ht 160 cm; Wt 65.8 kg
[~2021-05-10 20:20] MED LIST: ASPI-1005 PO; ATOR20TA65 PO; CALC500T7 PO; FURO20TA4 PO; METO50 PO; SPIR25TA PO; TICA90TA PO
[2021-05-10] MEDS ORDERED: KETOROLAC 15MG/ML VIAL (15MG/ML) ONE (21:22)
[2021-05-10] MEDS ORDERED: MORPHINE 4 MG SYG ONE (21:22)
[2021-05-10] MEDS ORDERED: KETOROLAC 15MG/ML VIAL (15MG/ML) IV ONE (21:30)
[2021-05-10] MEDS ORDERED: MORPHINE 4 MG SYG IV ONE (21:30)
[2021-05-10 21:47] LABS: BASOPHILS % (AUTO) 0.8 % (0.0-5.0); EOSINOPHILS % (AUTO) 1.4 % (0.0-8.0); HEMATOCRIT 37.4 % (36-48); LYMPHOCYTES % (AUTO) 12.6 % (21.0-51.0); MEAN CORPUSCULAR HEMOGLOBIN 29.9 pg (27.0-33.0); MEAN CORPUSCULAR HGB CONC 32.4 g/dL (32.0-36.0); MEAN CORPUSCULAR VOLUME 92.3 fL (79-99); MONOCYTES % (AUTO) 6.3 % (3.0-13.0); NEUTROPHILS % (AUTO) 78.2 % (40.0-77.0); PLATELET COUNT (AUTO) 221 K/uL (130-400); RED BLOOD CELL COUNT(AUTO) 4.05 MIL/uL (4.00-5.50); RED CELL DISTRIBUTION WIDTH 14.1 % (11.0-15.5); WHITE BLOOD COUNT (AUTO) 11.7 K/uL (4.8-10.8)
[2021-05-10 21:56] LABS: CREATININE 1.3 mg/dL (0.5-1.5); POTASSIUM 3.7 mmol/L (3.5-5.1)
[2021-05-10 21:57] LABS: INR 1.01 (0.85-1.15)
[2021-05-10 21:59] LABS: PARTIAL THROMBOPLASTIN TIME 26.8 SEC (26.3-35.5)
[2021-05-10 22:02] LABS: APPEARANCE,URINE Clear (CLEAR); BILIRUBIN,URINE Negative (NEGATIVE); COLOR,URINE Yellow (YELLOW); GLUCOSE, URINE (UA) Negative (NEGATIVE); KETONES,URINE Negative (NEGATIVE); LEUKOCYTE ESTERASE ,URINE Trace (NEGATIVE); NITRATE,URINE Negative (NEGATIVE); OCCULT BLOOD,URINE Negative (NEGATIVE); PH,URINE 5.5 (5.0-8.0); PROTEIN,URINE Negative (NEGATIVE); UROBILINOGEN,URINE 0.2 mg/dL (0.2-1.0)
[2021-05-10 22:09] LABS: BACTERIA,URINE Few /HPF (None Seen); RBC,URINE 0-1 /HPF (0-1); SQUAMOUS EPITHELIAL CELL,UR Rare /HPF (0-2)
[2021-05-10 22:10] LABS: ALBUMIN 3.6 g/dL (3.5-5.0); BILIRUBIN,TOTAL 0.4 mg/dL (0.2-1.0); TOTAL PROTEIN, SERUM 7.7 g/dL (6.0-8.3)
[2021-05-11] VITALS (7 sets, daily range): BP systolic 125–149; BP diastolic 49–61
[2021-05-11] MEDS ORDERED: HYDRALAZINE 20MG/ML VIAL IV PRN (00:30)
[2021-05-11] MEDS ORDERED: ONDANSETRON 4MG INJ IV PRN (00:30)
[2021-05-11] MEDS ORDERED: GUAIFENESIN-DM 200/20 MG 10 ML PO PRN (00:30)
[2021-05-11] MEDS ORDERED: ACETAMINOPHEN 325 MG TAB PO PRN ×2 (00:30)
[2021-05-11] MEDS ORDERED: HYDROCODONE/ACETAMINOPHEN 5/325 MG TAB PO PRN (00:30)
[2021-05-11] MEDS ORDERED: MAG/ALUM/SIMETH 30 ML UDCUP PO PRN (00:30)
[2021-05-11] MEDS ORDERED: ENOXAPARIN SODIUM 30 MG/0.3 ML SQ SCH (09:00)
[2021-05-11] MEDS: HYDROCODONE/ACETAMINOPHEN 5/325 MG TAB PO PRN ×2 (12:04→20:04)
[2021-05-12 04:49] VITALS: BP 130/54
[2021-05-12 05:54] LABS: BASOPHILS % (AUTO) 0.8 % (0.0-5.0); EOSINOPHILS % (AUTO) 3.5 % (0.0-8.0); HEMATOCRIT 32.9 % (36-48); LYMPHOCYTES % (AUTO) 24.2 % (21.0-51.0); MEAN CORPUSCULAR HEMOGLOBIN 29.3 pg (27.0-33.0); MEAN CORPUSCULAR HGB CONC 31.3 g/dL (32.0-36.0); MEAN CORPUSCULAR VOLUME 93.7 fL (79-99); PLATELET COUNT (AUTO) 188 K/uL (130-400); RED BLOOD CELL COUNT(AUTO) 3.51 MIL/uL (4.00-5.50); RED CELL DISTRIBUTION WIDTH 14.6 % (11.0-15.5); WHITE BLOOD COUNT (AUTO) 8.3 K/uL (4.8-10.8)
[2021-05-12 06:11] LABS: CREATININE 1.3 mg/dL (0.5-1.5)
[2021-05-12 08:07] VITALS: BP 149/51
[2021-05-12] MEDS: ACETAMINOPHEN WITH CODEINE 1 TAB TAB PO PRN ×2 (10:34→17:47)
[2021-05-12 10:41] VITALS: BP 143/59
[2021-05-12] MEDS: POLYETHYLENE GLYCOL 3350 17 GM POWD.PACK PO SCH (11:27)
[2021-05-12 15:25] VITALS: BP 148/59
[2021-05-12 20:31] VITALS: BP 156/66
[2021-05-12] MEDS: HYDROCODONE/ACETAMINOPHEN 5/325 MG TAB PO PRN (21:15)
[2021-05-12 23:23] VITALS: BP 146/53
[2021-05-13] VITALS (27 sets, daily range): BP systolic 112–161; BP diastolic 42–78
[2021-05-13] MEDS: HYDROCODONE/ACETAMINOPHEN 5/325 MG TAB PO PRN (04:42)
[2021-05-13 06:18] LABS: EOSINOPHILS % (AUTO) 2.8 % (0.0-8.0); HEMATOCRIT 33.9 % (36-48); LYMPHOCYTES % (AUTO) 19.3 % (21.0-51.0); MEAN CORPUSCULAR HEMOGLOBIN 29.5 pg (27.0-33.0); MEAN CORPUSCULAR HGB CONC 32.4 g/dL (32.0-36.0); MEAN CORPUSCULAR VOLUME 90.9 fL (79-99); MONOCYTES % (AUTO) 9.1 % (3.0-13.0); NEUTROPHILS % (AUTO) 67.5 % (40.0-77.0); PLATELET COUNT (AUTO) 197 K/uL (130-400); RED BLOOD CELL COUNT(AUTO) 3.73 MIL/uL (4.00-5.50); RED CELL DISTRIBUTION WIDTH 14.1 % (11.0-15.5)
[2021-05-13 06:27] LABS: CREATININE 1.1 mg/dL (0.5-1.5); POTASSIUM 4.1 mmol/L (3.5-5.1)
[2021-05-13] MEDS ORDERED: LACTATED RINGERS 1000ML 1,000 ML IV ONE (08:09)
[2021-05-13] MEDS ORDERED: SENNOSIDES 8.6 MG TABLET PO PRN (08:30)
[2021-05-13] MEDS ORDERED: LIDOCAINE PF 100MG/5ML (2%) SYRINGE 5ML ONE (08:44)
[2021-05-13] MEDS ORDERED: MEPERIDINE-PF 25 MG/ML SYG ONE (08:44)
[2021-05-13] MEDS ORDERED: PROPOFOL 10 MG/ML 20ML VIAL IV ONE (08:44)
[2021-05-13] MEDS ORDERED: ROPIVACAINE 0.5% 5MG/ML 30ML IJ ONE (08:48)
[2021-05-13] MEDS ORDERED: EPHEDRINE SULFATE 50 MG/ML AMPULE ONE (09:13)
[2021-05-13] MEDS ORDERED: CEFAZOLIN SODIUM 1 GM VIAL ONE (09:23)
[2021-05-13] MEDS ORDERED: LACTULOSE 20 GM/30 ML UDCUP PO PRN (14:00)
[2021-05-13] MEDS: ACETAMINOPHEN WITH CODEINE 1 TAB TAB PO PRN ×2 (17:05→22:40)
[2021-05-13] MEDS: POLYETHYLENE GLYCOL 3350 17 GM POWD.PACK PO SCH (17:05)
[2021-05-13] MEDS: LACTULOSE 20 GM/30 ML UDCUP PO PRN (22:40)
[2021-05-14] MEDS ORDERED: TRAMADOL HCL 50 MG TABLET PO PRN ×2 (00:30)
[2021-05-14] MEDS ORDERED: KETOROLAC 15MG/ML VIAL (15MG/ML) IV ONE (00:30)
[2021-05-14] MEDS ORDERED: MORPHINE 4 MG SYG IV PRN (00:30)
[2021-05-14 04:15] VITALS: BP 162/59
[2021-05-14 05:04] LABS: BASOPHILS % (AUTO) 0.6 % (0.0-5.0); EOSINOPHILS % (AUTO) 0.4 % (0.0-8.0); HEMATOCRIT 33.8 % (36-48); MEAN CORPUSCULAR HEMOGLOBIN 29.9 pg (27.0-33.0); MEAN CORPUSCULAR HGB CONC 32.5 g/dL (32.0-36.0); MEAN CORPUSCULAR VOLUME 91.8 fL (79-99); MONOCYTES % (AUTO) 8.8 % (3.0-13.0); NEUTROPHILS % (AUTO) 77.8 % (40.0-77.0); PLATELET COUNT (AUTO) 191 K/uL (130-400); RED BLOOD CELL COUNT(AUTO) 3.68 MIL/uL (4.00-5.50); WHITE BLOOD COUNT (AUTO) 8.5 K/uL (4.8-10.8)
[2021-05-14 05:27] LABS: POTASSIUM 4.6 mmol/L (3.5-5.1)
[2021-05-14 07:00] VITALS: BP 158/60
[2021-05-14] MEDS: POLYETHYLENE GLYCOL 3350 17 GM POWD.PACK PO SCH (08:33)
[2021-05-14] MEDS: ENOXAPARIN SODIUM 30 MG/0.3 ML SQ SCH (08:44)
[2021-05-14 11:00] VITALS: BP 138/53
[2021-05-14] MEDS: ACETAMINOPHEN WITH CODEINE 1 TAB TAB PO PRN ×2 (13:16→23:53)
[2021-05-14 16:00] VITALS: BP 143/50
[2021-05-14 19:28] VITALS: BP 165/58
[2021-05-14] MEDS: MORPHINE 2 MG SYG IVP PRN (19:47)
[2021-05-14] MEDS: LACTULOSE 20 GM/30 ML UDCUP PO PRN (21:53)
[2021-05-14 23:45] VITALS: BP 167/70
[2021-05-15 04:13] VITALS: BP 157/67
[2021-05-15] MEDS: MORPHINE 2 MG SYG IVP PRN (05:45)
[2021-05-15 06:22] LABS: BASOPHILS % (AUTO) 0.9 % (0.0-5.0); EOSINOPHILS % (AUTO) 2.7 % (0.0-8.0); HEMATOCRIT 32.7 % (36-48); LYMPHOCYTES % (AUTO) 25.4 % (21.0-51.0); MEAN CORPUSCULAR VOLUME 90.8 fL (79-99); MONOCYTES % (AUTO) 11.1 % (3.0-13.0); NEUTROPHILS % (AUTO) 59.5 % (40.0-77.0); PLATELET COUNT (AUTO) 213 K/uL (130-400); RED CELL DISTRIBUTION WIDTH 13.9 % (11.0-15.5); WHITE BLOOD COUNT (AUTO) 7.5 K/uL (4.8-10.8)
[2021-05-15 06:29] LABS: CREATININE 1.1 mg/dL (0.5-1.5); POTASSIUM 4.4 mmol/L (3.5-5.1)
[2021-05-15] MEDS: ENOXAPARIN SODIUM 30 MG/0.3 ML SQ SCH (09:21)
[2021-05-15] MEDS: POLYETHYLENE GLYCOL 3350 17 GM POWD.PACK PO SCH (09:21)
[2021-05-15] MEDS: ACETAMINOPHEN WITH CODEINE 1 TAB TAB PO PRN (09:22)
[2021-05-15 11:22] VITALS: BP 122/68
[2021-05-15 16:08] VITALS: BP 121/56
== END 2021-05-15 17:39 | DRG 511 ==
LOC: EDH 20:20 → EDHIP 05-11 00:30 → 4AH 05-11 01:17
PROVIDERS: ADMIT Hospitalist; ATTEND Hospitalist
PROC: 0PSJ04Z Reposition Left Radius with Internal Fixation Device, Open Approach (ICD-10-PCS; principal; 2021-05-13 09:26)
DX: S52.572A Other intraarticular fracture of lower end of left radius, initial encounter for closed fracture (principal); S32.592A Other specified fracture of left pubis, initial encounter for closed fracture; I50.42 Chronic combined systolic (congestive) and diastolic (congestive) heart failure; S32.512A Fracture of superior rim of left pubis, initial encounter for closed fracture; S32.9XXA Fracture of unspecified parts of lumbosacral spine and pelvis, initial encounter for closed fracture; S52.612A Displaced fracture of left ulna styloid process, initial encounter for closed fracture; Z20.822 Contact with and (suspected) exposure to COVID-19; E78.5 Hyperlipidemia, unspecified; I11.0 Hypertensive heart disease with heart failure; I25.10 Atherosclerotic heart disease of native coronary artery without angina pectoris; W01.0XXA Fall on same level from slipping, tripping and stumbling without subsequent striking against object, initial encounter; Y93.89 Activity, other specified; Y92.480 Sidewalk as the place of occurrence of the external cause; Y99.8 Other external cause status; I25.2 Old myocardial infarction; Z82.3 Family history of stroke; Z87.891 Personal history of nicotine dependence; Z95.5 Presence of coronary angioplasty implant and graft; Z83.3 Family history of diabetes mellitus; Z83.6 Family history of other diseases of the respiratory system; Z82.49 Family history of ischemic heart disease and other diseases of the circulatory system
CPT/HCPCS: 36415; 72192; 73110; 73502; 80048; 80053; 81001; 84484; 85025; 85610; 85730; 87088; 87635; 93005; 97039; G0378; J0360; J0690; J1650; J1885; J2001; J2175; J2270; J2704; J2795; J3490; J7120